=== PATIENT | male | born 1955 | race Caucasian/White ===

== ENCOUNTER 2019-04-23 07:18 | Emergency (ER) | payer MEDICARE ==
[2019-04-23] MEDS ORDERED: KETOROLAC TROMETHAMINE 60 MG/2 ML VIAL ONE (07:43)
[2019-04-23] MEDS ORDERED: ONDANSETRON ODT 4 MG TAB ONE (07:43)
[2019-04-23] MEDS ORDERED: MORPHINE SULFATE 4 MG/1ML SYG ONE (07:44)
== END 2019-04-23 09:16 | disposition home or self-care (01) ==
LOC: EDH 07:18
DX: S16.1XXA Strain of muscle, fascia and tendon at neck level, initial encounter (principal); I10 Essential (primary) hypertension; E78.5 Hyperlipidemia, unspecified; Z87.891 Personal history of nicotine dependence; X50.9XXA Other and unspecified overexertion or strenuous movements or postures, initial encounter; Y93.89 Activity, other specified; Y92.89 Other specified places as the place of occurrence of the external cause; Y99.8 Other external cause status
CPT/HCPCS: 72125; 96372 ×2; 99284; J1885; J2270

== ENCOUNTER → 2019-06-24 | Outpatient (CLI) | payer MEDICARE | END | disposition home or self-care (01) | LOC: RAH 10:31 | PROVIDERS: ATTEND Family Medicine | DX: M47.816 Spondylosis without myelopathy or radiculopathy, lumbar region (principal); M48.061 Spinal stenosis, lumbar region without neurogenic claudication | CPT/HCPCS: 72148 ==

== ENCOUNTER → 2019-07-24 | Outpatient (CLI) | payer MEDICARE | END | disposition home or self-care (01) | LOC: RAH 09:48 | PROVIDERS: ATTEND Internal Medicine Cardiovascular Disease | DX: I10 Essential (primary) hypertension (principal) | CPT/HCPCS: 93306 ==

== ENCOUNTER → 2019-07-31 | Outpatient (CLI) | payer MEDICARE ==
--- NOTE | 2019-07-21 10:48 | NUR ---
PROCEDURE WAS RESCHEDULED FOR ANOTHER DOS D/T TECHNICAL ISSUES WITH EQUIPMENT
[~2019-07-31] VITALS: Ht 180.3 cm; Wt 98.9 kg
[~2019-07-31] MED LIST: LISI-613 PO; MELO-108 PO; REGADENOSON 0.4 MG/5 ML PF SYG IVP SCH; SIMV-43 PO
== END | disposition home or self-care (01) ==
LOC: SHCH 07-21 09:01
PROVIDERS: ATTEND Internal Medicine Cardiovascular Disease
DX: R06.02 Shortness of breath (principal)
CPT/HCPCS: 78452; 93017; 96374; A9500 ×2; J2785

== ENCOUNTER 2019-08-17 10:30 | Observation (INO) | payer MEDICARE ==
[~2019-08-17] VITALS: Ht 182.9 cm; Wt 97.7 kg
[2019-08-17 10:07] VITALS: BP 135/76
[2019-08-17 10:10] LABS: BASOPHILS % (AUTO) 1.2 % (0.0-5.0); EOSINOPHILS % (AUTO) 2.4 % (0.0-8.0); HEMATOCRIT 41.2 % (42-54); LYMPHOCYTES % (AUTO) 31.6 % (21.0-51.0); MEAN CORPUSCULAR HEMOGLOBIN 32.1 pg (27.0-33.0); MEAN CORPUSCULAR HGB CONC 34.2 g/dL (32.0-36.0); MEAN CORPUSCULAR VOLUME 93.8 fL (79-99); NEUTROPHILS % (AUTO) 55.8 % (40.0-77.0); PLATELET COUNT (AUTO) 243 K/uL (130-400); RED CELL DISTRIBUTION WIDTH 12.9 % (11.0-15.5); WHITE BLOOD COUNT (AUTO) 6.9 K/uL (4.8-10.8)
[2019-08-17 10:18] LABS: CREATININE 1.2 mg/dL (0.5-1.5); POTASSIUM 4.4 mmol/L (3.5-5.1)
[2019-08-17] MEDS ORDERED: SIMV-43 PO (10:35)
[2019-08-17] MEDS ORDERED: LISI-613 PO (10:35)
[2019-08-17] MEDS ORDERED: MELO-108 PO (10:35)
[2019-08-20] VITALS (25 sets, daily range): BP systolic 100–148; BP diastolic 52–93
[2019-08-20] MEDS: CEFAZOLIN SODIUM 1 GM VIAL IVP SCH ×2 (06:00→07:45)
[2019-08-20] MEDS ORDERED: LACTATED RINGERS 1000ML 1,000 ML IV ONE (06:48)
[2019-08-20] MEDS ORDERED: LIDOCAINE PF 2% 5ML ABBOJECT ONE (06:51)
[2019-08-20] MEDS ORDERED: SUCCINYLCHOLINE 200MG/10ML SYR ONE (06:51)
[2019-08-20] MEDS ORDERED: DEXAMETHASONE SOD PHOSPHATE 10MG/ML 1ML VIAL ONE ×2 (06:51→07:56)
[2019-08-20] MEDS ORDERED: MIDAZOLAM HCL 1 MG/ML 2ML VIAL ONE (06:51)
[2019-08-20] MEDS ORDERED: GLYCOPYRROLATE 1 MG/5 ML SYRINGE ONE (06:51)
[2019-08-20] MEDS ORDERED: ROCURONIUM 10MG/1ML SYR 10 MG/ML ML ONE ×2 (06:52→08:13)
[2019-08-20] MEDS ORDERED: ONDANSETRON HCL 4 MG/2 ML VIAL ONE (06:52)
[2019-08-20] MEDS ORDERED: PROPOFOL 10 MG/ML 20ML VIAL IV ONE (06:52)
[2019-08-20] MEDS ORDERED: NEOSTIGMINE 5MG/5ML SYR IV ONE (06:52)
[2019-08-20] MEDS ORDERED: FENTANYL CITRATE PF 50 MCG/1 ML 2ML VIAL ONE ×2 (06:53→08:27)
[2019-08-20] MEDS ORDERED: EPHEDRINE SULFATE 50 MG/ML AMPULE ONE (06:55)
[2019-08-20] MEDS: THROMBIN-JMI 20000 UNIT KIT TP ONE ×2 (07:00→07:45)
[2019-08-20] MEDS: DURAMORPH PF1 MG/ML 10ML AMP IV ONE ×2 (07:00→07:45)
[2019-08-20] MEDS: BUPIVACAINE/EPI/PF 0.5% 30ML VIAL IJ ONE ×2 (07:00→07:45)
[2019-08-20] MEDS: BACITRACIN 50,000 UNIT VIAL ONE ×2 (07:00→07:45)
[2019-08-20] MEDS ORDERED: SUB TO ALBUTEROL 2.5MG/3ML NEBULES PER P&T IH ONE (07:42)
[2019-08-20] MEDS ORDERED: ESMOLOL HCL 10 MG/ML 10 ML VIAL ONE (08:11)
[2019-08-20] MEDS ORDERED: GENTAMICIN 80 MG/NS 100 ML PB 100 ML IV ONE (10:44)
[2019-08-20] MEDS: LACTATED RINGERS 1000ML 1,000 ML IV SCH (10:51)
[2019-08-20] MEDS ORDERED: SODIUM CHLORIDE 0.9% 10 ML VIAL IVP PRN (11:00)
[2019-08-20] MEDS: DEXAMETHASONE SOD PHOSPHATE 4 MG/ML 1ML VIAL IVP SCH ×3 (11:00→22:15)
[2019-08-20] MEDS ORDERED: MORPHINE SULFATE 2 MG/ML 1ML SYG IVP PRN (11:00)
[2019-08-20] MEDS ORDERED: HYDROCODONE/ACETAMINOPHEN 5/325 MG TAB PO PRN (11:00)
[2019-08-20] MEDS ORDERED: PROMETHAZINE HCL 25 MG/ML 1ML AMPULE IM PRN (11:00)
[2019-08-20] MEDS ORDERED: SIMVASTATIN 20 MG TABLET PO SCH (21:00)
[2019-08-21] MEDS: LACTATED RINGERS 1000ML 1,000 ML IV SCH (00:11)
[2019-08-21 03:20] VITALS: BP 133/73
[2019-08-21] MEDS: DEXAMETHASONE SOD PHOSPHATE 4 MG/ML 1ML VIAL IVP SCH (05:15)
[2019-08-21] MEDS: CEFAZOLIN SODIUM 1 GM VIAL IVP SCH (05:15)
[2019-08-21 07:42] VITALS: BP 130/66
[2019-08-21] MEDS ORDERED: MELOXICAM 7.5 MG TABLET PO SCH (08:00)
--- NOTE | 2019-08-21 08:00 | NUR ---
Dr Almendarez rounded on patient and told him he could be d/c home today and follow up with him in a week for staple removal; pt is currently dtv from mccabe cathetor removal this morning, he will need to void before he can be discharged
[2019-08-21] MEDS ORDERED: LISINOPRIL 20 MG TABLET PO SCH (09:00)
--- NOTE | 2019-08-21 09:00 | NUR ---
dressing changed to inc. line to back and gurwinder drain removed after debbie removed; inc. is well approx. with debbie in place, no redness or fresh drainage; clean 4x4 gauze applied, pt raheel. proc. well. and signs and symptoms of infection to watch for and report discussed and to cover inc. line when showering. pt stated understanding of all d/c instructions.
--- NOTE | 2019-08-21 10:15 | NUR ---
pt stated understanding of all d/c instructions on after care for a laminectomy, including activity restrictions, signs and symptoms of infection and pain medications; iv access removed and pt's family due to pick him up at 1100; pt was dtv and he did void 400cc clear yellow urine
== END 2019-08-21 11:00 | disposition home or self-care (01) ==
LOC: DAHIP 08-20 05:43 → EDSTATUS 08-20 10:30 → 4CH 08-20 11:58
PROVIDERS: ADMIT Neurological Surgery; ATTEND Neurological Surgery
DX: M48.061 Spinal stenosis, lumbar region without neurogenic claudication (principal); I10 Essential (primary) hypertension; E78.00 Pure hypercholesterolemia, unspecified; Z79.899 Other long term (current) drug therapy
CPT/HCPCS: 36415; 63047; 72020; 80048; 85025; 96365; 96366; 96375; 96376 ×2; 99283; A4215; A4221; A4222; A4223; A4344; A4510; A4600; A4649 ×3; A4663; A5120; A6260; G0378 ×23; J0330; J0690; J1100 ×5; J1580; J2001; J2250; J2274; J2405; J2704; J2710; J3010 ×2; J3490 ×4; J7030; J7120 ×2

== ENCOUNTER 2019-08-21 21:08 | Emergency (ER) | payer MEDICARE ==
[~2019-08-21 21:08] MED LIST changes: -REGADENOSON 0.4 MG/5 ML PF SYG IVP SCH
== END 2019-08-21 22:43 | disposition home or self-care (01) ==
LOC: EDH 21:08
DX: L76.34 Postprocedural seroma of skin and subcutaneous tissue following other procedure (principal); E78.5 Hyperlipidemia, unspecified; I10 Essential (primary) hypertension; M19.90 Unspecified osteoarthritis, unspecified site

== ENCOUNTER 2019-09-08 12:01 | Emergency (ER) | payer MEDICARE ==
[2019-09-08 13:03] LABS: BASOPHILS % (AUTO) 0.9 % (0.0-5.0); EOSINOPHILS % (AUTO) 1.8 % (0.0-8.0); HEMATOCRIT 40.4 % (42-54); LYMPHOCYTES % (AUTO) 33.6 % (21.0-51.0); MEAN CORPUSCULAR HEMOGLOBIN 31.8 pg (27.0-33.0); MEAN CORPUSCULAR VOLUME 93.4 fL (79-99); MONOCYTES % (AUTO) 9.3 % (3.0-13.0); NEUTROPHILS % (AUTO) 54.4 % (40.0-77.0); PLATELET COUNT (AUTO) 301 K/uL (130-400); RED BLOOD CELL COUNT(AUTO) 4.33 MIL/uL (4.50-6.20); RED CELL DISTRIBUTION WIDTH 13.1 % (11.0-15.5); WHITE BLOOD COUNT (AUTO) 7.3 K/uL (4.8-10.8)
[2019-09-08] MEDS ORDERED: MECLIZINE HCL 25 MG TABLET ONE (13:12)
[2019-09-08] MEDS ORDERED: SODIUM CHLORIDE 0.9% 1000ML 1,000 ML IV ONE (13:12)
[2019-09-08 13:16] LABS: ALBUMIN 3.5 g/dL (3.5-5.0); BILIRUBIN,TOTAL 0.6 mg/dL (0.2-1.0); CREATININE 1.2 mg/dL (0.5-1.5); POTASSIUM 3.8 mmol/L (3.5-5.1); TOTAL PROTEIN, SERUM 6.6 g/dL (6.0-8.3)
== END 2019-09-08 15:01 | disposition home or self-care (01) ==
LOC: EDH 12:01
DX: H81.399 Other peripheral vertigo, unspecified ear (principal); I10 Essential (primary) hypertension; E78.5 Hyperlipidemia, unspecified; M19.90 Unspecified osteoarthritis, unspecified site; Z98.890 Other specified postprocedural states; Z72.0 Tobacco use
CPT/HCPCS: 36415; 70450; 80053; 84484; 85025; 93005; 96360; 96361; 99285; J7030

== ENCOUNTER 2019-12-17 17:37 | Emergency (ER) | payer MEDICARE ==
[2019-12-17] MEDS ORDERED: LIDOCAINE 5% TOPICAL PATCH TP ONE (17:47)
[2019-12-17] MEDS ORDERED: KETOROLAC TROMETHAMINE 30MG/ML ONE (17:47)
[2019-12-17] MEDS ORDERED: DIAZEPAM 5 MG TABLET ONE (17:48)
== END 2019-12-17 19:00 | disposition home or self-care (01) ==
LOC: EDH 17:37
DX: M62.838 Other muscle spasm (principal); E78.5 Hyperlipidemia, unspecified; I10 Essential (primary) hypertension; Z87.891 Personal history of nicotine dependence
CPT/HCPCS: 96372; 99283; J1885

== ENCOUNTER → 2020-03-01 | Outpatient (CLI) | payer MEDICARE | END | disposition home or self-care (01) | LOC: SHCH 10:27 | PROVIDERS: ATTEND Internal Medicine Cardiovascular Disease | DX: I10 Essential (primary) hypertension (principal) | CPT/HCPCS: 93306; 93356 ==

== ENCOUNTER 2020-08-21 10:24 | Emergency (ER) | payer MEDICARE ==
[2020-08-21] MEDS ORDERED: KETOROLAC TROMETHAMINE 15MG/ML ONE (10:55)
[2020-08-21] MEDS ORDERED: DIAZEPAM 5 MG/ML 2 ML SYG ONE (10:55)
== END 2020-08-21 12:17 | disposition home or self-care (01) ==
LOC: EDH 10:24
DX: S43.401A Unspecified sprain of right shoulder joint, initial encounter (principal); M25.511 Pain in right shoulder; M19.90 Unspecified osteoarthritis, unspecified site; E78.5 Hyperlipidemia, unspecified; I10 Essential (primary) hypertension; J44.9 Chronic obstructive pulmonary disease, unspecified; X58.XXXA Exposure to other specified factors, initial encounter; Y93.89 Activity, other specified; Y92.89 Other specified places as the place of occurrence of the external cause; Y99.8 Other external cause status
CPT/HCPCS: 73030; 93005; 96374; 96375; 99284; J1885; J3360

== ENCOUNTER 2020-08-22 | Emergency (ER) | payer MEDICARE | END 2020-08-22 00:33 | disposition home or self-care (01) | LOC: EDH | DX: S46.911A Strain of unspecified muscle, fascia and tendon at shoulder and upper arm level, right arm, initial encounter (principal); E78.5 Hyperlipidemia, unspecified; I10 Essential (primary) hypertension; M19.90 Unspecified osteoarthritis, unspecified site; M62.838 Other muscle spasm; X58.XXXA Exposure to other specified factors, initial encounter; Y93.89 Activity, other specified; Y92.098 Other place in other non-institutional residence as the place of occurrence of the external cause; Y99.8 Other external cause status | CPT/HCPCS: 96372; 99283 ×2; J2270 ==

== ENCOUNTER 2020-08-22 01:16 | Emergency (ER) | payer MEDICARE ==
[2020-08-22] MEDS ORDERED: MORPHINE SULFATE 4 MG/1ML SYG ONE (01:29)
== END 2020-08-22 01:39 | disposition home or self-care (01) ==
LOC: EDH 01:16
DX: M62.838 Other muscle spasm (principal); M19.90 Unspecified osteoarthritis, unspecified site; E78.5 Hyperlipidemia, unspecified; I10 Essential (primary) hypertension
CPT/HCPCS: 96372; 99283; J2270

== ENCOUNTER 2020-08-23 20:49 | Emergency (ER) | payer MEDICARE ==
[2020-08-23] MEDS ORDERED: KETOROLAC TROMETHAMINE 60 MG/2 ML VIAL ONE (21:53)
[2020-08-23] MEDS ORDERED: MORPHINE SULFATE 4 MG/1ML SYG ONE (21:53)
== END 2020-08-23 22:10 | disposition home or self-care (01) ==
LOC: EDH 20:49
DX: S29.012A Strain of muscle and tendon of back wall of thorax, initial encounter (principal); J44.9 Chronic obstructive pulmonary disease, unspecified; I10 Essential (primary) hypertension; E78.5 Hyperlipidemia, unspecified; M19.90 Unspecified osteoarthritis, unspecified site; Z98.890 Other specified postprocedural states; X58.XXXA Exposure to other specified factors, initial encounter; Y93.89 Activity, other specified; Y92.89 Other specified places as the place of occurrence of the external cause; Y99.8 Other external cause status
CPT/HCPCS: 96372 ×2; 99284; J1885; J2270

== ENCOUNTER → 2020-09-19 | Outpatient (CLI) | payer MEDICARE ==
[2020-09-19 10:07] LABS: CREATININE 1.3 mg/dL (0.5-1.5)
== END | disposition home or self-care (01) ==
LOC: LAB 08:56
PROVIDERS: ATTEND Neurological Surgery
DX: M54.16 Radiculopathy, lumbar region (principal)
CPT/HCPCS: 36415; 82565; 84520

== ENCOUNTER → 2020-10-11 | Outpatient (CLI) | payer MEDICARE ==
[~2020-10-11] MED LIST changes: +GADODIAMIDE 10 MMOL/20 ML VIAL IV ONE
== END | disposition home or self-care (01) ==
LOC: RAH 12:35
PROVIDERS: ATTEND Neurological Surgery
DX: M51.25 Other intervertebral disc displacement, thoracolumbar region (principal); M47.25 Other spondylosis with radiculopathy, thoracolumbar region; M48.05 Spinal stenosis, thoracolumbar region
CPT/HCPCS: 72158; A9579

== ENCOUNTER → 2020-11-16 | Outpatient (CLI) | payer MEDICARE ==
[~2020-11-16] MED LIST changes: -GADODIAMIDE 10 MMOL/20 ML VIAL IV ONE
== END | disposition home or self-care (01) ==
LOC: RAH 13:25
PROVIDERS: ATTEND Physical Medicine & Rehabilitation
DX: M48.02 Spinal stenosis, cervical region (principal); M50.123 Cervical disc disorder at C6-C7 level with radiculopathy
CPT/HCPCS: 72114; 72141

== ENCOUNTER → 2020-11-25 | Outpatient (CLI) | payer MEDICARE | END | disposition home or self-care (01) | LOC: RAH 10:07 | PROVIDERS: ATTEND Physical Medicine & Rehabilitation | DX: M47.814 Spondylosis without myelopathy or radiculopathy, thoracic region (principal) | CPT/HCPCS: 72072 ==

== ENCOUNTER → 2020-12-21 | Outpatient (CLI) | payer MEDICARE ==
[~2020-12-21] MED LIST changes: +GADODIAMIDE 10 MMOL/20 ML VIAL IV ONE; +IOPAMIDOL 10 ML VIAL ONE; -LISI-613 PO; +LISI20TA24 PO
== END | disposition home or self-care (01) ==
LOC: RAH 07:37
PROVIDERS: ATTEND Physical Medicine & Rehabilitation
DX: S43.431A Superior glenoid labrum lesion of right shoulder, initial encounter (principal); X58.XXXA Exposure to other specified factors, initial encounter; Y93.89 Activity, other specified; Y92.89 Other specified places as the place of occurrence of the external cause; Y99.8 Other external cause status
CPT/HCPCS: 23350; 73223; 77002; A9579; Q9966

== ENCOUNTER 2021-10-10 06:06 | Day surgery (SDC) | payer MEDICARE ==
[~2021-10-10] VITALS: Ht 180.3 cm; Wt 88.0 kg
[~2021-10-10 06:06] MED LIST changes: +FLUT1BLS3 IH; -GADODIAMIDE 10 MMOL/20 ML VIAL IV ONE; -IOPAMIDOL 10 ML VIAL ONE; -MELO-108 PO; +TERA5CAP4 PO
[2021-10-10] MEDS ORDERED: 0.9%NACL 1000ML 1,000 ML IV ONE (06:18)
[2021-10-10] MEDS ORDERED: PROPOFOL 10 MG/ML 20ML VIAL IV ONE (08:35)
[2021-10-10 08:55] VITALS: BP 114/62
[2021-10-10 09:00] VITALS: BP 107/52
[2021-10-10] MEDS ORDERED: IPRATROPIUM/ALBUTEROL SULFATE 3 ML SOLUTION IH SCH (09:04)
[2021-10-10 09:05] VITALS: BP 118/76
[2021-10-10 09:10] VITALS: BP 128/69
[2021-10-10 09:15] VITALS: BP 126/78
== END 2021-10-10 09:30 | disposition home or self-care (01) ==
LOC: ENDO 06:06 → DAH 06:06 → ENDO 09:30
PROVIDERS: ATTEND Internal Medicine Gastroenterology
DX: C15.9 Malignant neoplasm of esophagus, unspecified (principal); Z20.822 Contact with and (suspected) exposure to COVID-19; I10 Essential (primary) hypertension; M19.90 Unspecified osteoarthritis, unspecified site; J44.9 Chronic obstructive pulmonary disease, unspecified; E78.5 Hyperlipidemia, unspecified; Z98.890 Other specified postprocedural states
CPT/HCPCS: 43259; 87635; 94640; A4215 ×2; A4221; A4222; A4223; A4606; A4620; A4657; A4663; C9803; J2704; J7030

== ENCOUNTER → 2021-10-31 | Outpatient (CLI) | payer MEDICARE | END | disposition home or self-care (01) | LOC: RAH 09:06 | PROVIDERS: ATTEND Orthopaedic Surgery | DX: M75.41 Impingement syndrome of right shoulder (principal); M19.011 Primary osteoarthritis, right shoulder; M25.711 Osteophyte, right shoulder; Z98.890 Other specified postprocedural states | CPT/HCPCS: 73221 ==

== ENCOUNTER 2022-09-25 08:46 | Emergency (ER) | payer MEDICARE ==
[~2022-09-25] VITALS: Ht 180.3 cm; Wt 73.0 kg
[2022-09-25] MEDS ORDERED: PANTOPRAZOLE 40 MG/VIAL IVP STA (09:12)
[2022-09-25 09:19] LABS: BASOPHILS % (AUTO) 0.7 % (0.0-5.0); HEMATOCRIT 38.6 % (42-54); LYMPHOCYTES % (AUTO) 21.8 % (21.0-51.0); MEAN CORPUSCULAR HEMOGLOBIN 29.3 pg (27.0-33.0); MEAN CORPUSCULAR HGB CONC 33.2 g/dL (32.0-36.0); MEAN CORPUSCULAR VOLUME 88.3 fL (79-99); MONOCYTES % (AUTO) 0.9 % (3.0-13.0); NEUTROPHILS % (AUTO) 75.3 % (40.0-77.0); PLATELET COUNT (AUTO) 335 K/uL (130-400); RED BLOOD CELL COUNT(AUTO) 4.37 MIL/uL (4.50-6.20); RED CELL DISTRIBUTION WIDTH 14.1 % (11.0-15.5); WHITE BLOOD COUNT (AUTO) 6.9 K/uL (4.8-10.8)
[2022-09-25 09:27] LABS: POTASSIUM 3.7 mmol/L (3.5-5.1)
[2022-09-25] MEDS ORDERED: 0.9%NACL 1000ML 1,000 ML IV ONE (09:30)
[2022-09-25] MEDS ORDERED: DICYCLOMINE HCL 10 MG/5 ML ML PO SCH (10:00)
[2022-09-25] MEDS ORDERED: MAG/ALUM/SIMETH 30 ML UDCUP PO ONE ×2 (10:00)
[2022-09-25] MEDS ORDERED: DICYCLOMINE HCL 10 MG/5 ML ML PO ONE (10:00)
[2022-09-25] MEDS ORDERED: LIDOCAINE HCL 2% VISCOUS 15 ML UDCUP PO ONE ×2 (10:00)
[2022-09-25 10:07] VITALS: BP 136/69
[2022-09-25] MEDS ORDERED: ONDANSETRON 4MG INJ IVP ONE (10:30)
[2022-09-25] MEDS ORDERED: ONDA4TAB10 PO (11:05)
[2022-09-25] MEDS ORDERED: PANT40TA55 PO (11:05)
== END 2022-09-25 11:08 | disposition home or self-care (01) ==
LOC: EDH 08:46
DX: K29.70 Gastritis, unspecified, without bleeding (principal); J44.9 Chronic obstructive pulmonary disease, unspecified; E78.00 Pure hypercholesterolemia, unspecified; I10 Essential (primary) hypertension; Z79.899 Other long term (current) drug therapy
CPT/HCPCS: 99284; 96374; 96361; 96375; 80053; 85025; 36415; J7030; J2405; C9113

== ENCOUNTER 2023-03-24 09:12 | Emergency (ER) | payer OTHER, MEDICARE ==
[~2023-03-24] VITALS: Ht 180.3 cm; Wt 72.6 kg
[~2023-03-24 09:12] MED LIST changes: -TERA5CAP4 PO
[2023-03-24 09:52] LABS: BASOPHILS % (AUTO) 1.4 % (0.0-5.0); EOSINOPHILS % (AUTO) 3.6 % (0.0-8.0); HEMATOCRIT 41.7 % (42-54); LYMPHOCYTES % (AUTO) 29.1 % (21.0-51.0); MEAN CORPUSCULAR HEMOGLOBIN 32.9 pg (27.0-33.0); MEAN CORPUSCULAR HGB CONC 33.3 g/dL (32.0-36.0); MEAN CORPUSCULAR VOLUME 98.6 fL (79-99); NEUTROPHILS % (AUTO) 59.6 % (40.0-77.0); PLATELET COUNT (AUTO) 178 K/uL (130-400); RED BLOOD CELL COUNT(AUTO) 4.23 MIL/uL (4.50-6.20); RED CELL DISTRIBUTION WIDTH 15.6 % (11.0-15.5); WHITE BLOOD COUNT (AUTO) 6.3 K/uL (4.8-10.8)
[2023-03-24] MEDS ORDERED: FAMOTIDINE 20MG VIAL IV ONE (10:00)
[2023-03-24] MEDS ORDERED: ONDANSETRON 4MG INJ IVP ONE ×2 (10:00→14:00)
[2023-03-24] MEDS ORDERED: 0.9%NACL 1000ML 1,000 ML IV ONE (10:00)
[2023-03-24] MEDS ORDERED: PROCHLORPERAZINE 10MG/2ML INJ IV ONE (10:00)
[2023-03-24 10:09] LABS: ALBUMIN 3.5 g/dL (3.5-5.0); CREATININE 1.4 mg/dL (0.5-1.5); POTASSIUM 3.6 mmol/L (3.5-5.1); TOTAL PROTEIN, SERUM 6.9 g/dL (6.0-8.3)
[2023-03-24] MEDS ORDERED: ONDA22I IM (13:50)
[2023-03-24] MEDS ORDERED: FAMO-136 PO (13:51)
[2023-03-24 13:58] VITALS: BP 112/64
== END 2023-03-24 14:10 | disposition home or self-care (01) ==
LOC: EDH 09:12
DX: K29.70 Gastritis, unspecified, without bleeding (principal); K21.00 Gastro-esophageal reflux disease with esophagitis, without bleeding; I10 Essential (primary) hypertension; E78.00 Pure hypercholesterolemia, unspecified; J44.9 Chronic obstructive pulmonary disease, unspecified; Z79.899 Other long term (current) drug therapy; Z98.890 Other specified postprocedural states; Z85.01 Personal history of malignant neoplasm of esophagus
CPT/HCPCS: 99285; 96374; 96375; 96361; 80053; 85025; 36415; 96376; J3490; J7030; J0780; J2405 ×2

== ENCOUNTER 2023-07-05 14:06 | Emergency (ER) | payer OTHER, MEDICARE ==
[~2023-07-05 14:06] MED LIST changes: +FAMO-136 PO; +ONDA22I IM
== END 2023-07-05 15:33 | disposition left against medical advice (07) ==
LOC: EDH 14:06
DX: R11.2 Nausea with vomiting, unspecified (principal); Z53.21 Procedure and treatment not carried out due to patient leaving prior to being seen by health care provider